=== PATIENT | female | born 1980 | race Caucasian/White ===

== ENCOUNTER → 2020-05-05 | Outpatient (CLI) | payer BC ==
[~2020-05-05] MED LIST: CALC-656 PO; FERR325C PO; FRS325T PO; OXYC-12 PO; OXYC-188 PO; PREN1TAB39 PO; PRM25T PO
--- NOTE | 2020-05-05 13:34 | Diagnostic Imaging Report ---
INDICATION: Left breast pain. 2-D and 3-D bilateral diagnostic mammography was performed with CAD. Correlation is made with prior left mammogram from 08/19/2015. Both breasts are heterogeneously dense, limiting the sensitivity of mammography. No mass or malignant appearing microcalcifications are seen. Axillae are unremarkable. IMPRESSION: BI-RADS 0 No mammographic features suspicious for malignancy are identified. Even so, sonographic interrogation of the left breast at the area of pain is recommended and will be performed today. ACR BI-RADS Category 0: Incomplete. (Needs additional imaging evaluation). Result letter will be mailed to the patient. Note: At least 10% of breast cancer is not imaged by mammography. Dictated by: Dictated on workstation # [id number]
--- NOTE | 2020-05-05 15:19 | Diagnostic Imaging Report ---
INDICATION: Left breast pain. CORRELATION is made with diagnostic mammogram earlier the same day. Sonographic interrogation of the area of pain at the 3-6 o'clock location of the left breast was performed. No sonographic abnormality is seen. No solid or cystic masses detected. IMPRESSION: BI-RADS Category 1. No sonographic abnormality is detected. ACR BI-RADS Category 1: Negative. Result letter will be mailed to the patient. Note: At least 10% of breast cancer is not imaged by mammography. Dictated by: Dictated on workstation # [id number]
== END ==
LOC: RAD 13:05
PROVIDERS: ATTEND Nurse Practitioner Family
DX: N64.4 Mastodynia (principal)
CPT/HCPCS: 76642; 77066; G0279; 77062